=== PATIENT | male | born 1970 | race Hispanic/Latino ===

== ENCOUNTER → 2018-10-02 | Outpatient (CLI) | payer BC ==
--- NOTE | 2018-10-02 11:09 | Diagnostic Imaging Report ---
Abdominal ultrasound dated 10/02/2018 at 10:17 AM. History: Right upper quadrant pain Comparison: <None available>. Discussion: Transverse and longitudinal images of the abdomen were obtained demonstrating a liver of normal size and echogenicity measuring 14.2 cm in length. The portal vein is patent with hepatopetal flow and is within normal limits measuring 1.3 mm in diameter. The biliary tree is within normal limits with the common bile duct measuring 3.2 mm in diameter. There are multiple shadowing stones within the gallbladder. Some gallbladder wall thickening is noted. The sonographic Hope's sign was negative. The kidneys are normal in size and echogenicity bilaterally without evidence of hydronephrosis, stones or mass. The right kidney measures 10.8 x 5.1 x 6.0 cm and the left kidney measures 10.5 x 5.7 x 6.4 cm. The spleen is normal in size and appearance measuring 11.4 x 4.5 x 4.8 cm. The pancreatic <head and body> are visualized and are normal in appearance. The abdominal aorta is within normal limits with a maximal measurement of 2.1 cm. The IVC is patent. There is no evidence of free fluid. IMPRESSION: Multiple shadowing stones within the gallbladder. Signed by: Dr. Lázaro Hu DO on 10/02/2018 11:05 AM
== END ==
LOC: US 09:37
PROVIDERS: ATTEND Internal Medicine Gastroenterology
DX: R11.2 Nausea with vomiting, unspecified (principal); R10.13 Epigastric pain; R50.9 Fever, unspecified
CPT/HCPCS: 76700